=== PATIENT | female | born 1960 ===

== ENCOUNTER → 2017-10-18 | Outpatient (CLI) | payer BC ==
[2014-11-08 12:04] VITALS: BMI 27.3
[~2017-10-18] MED LIST: ACET-1966 PO; AMOX-559 PO; APRE80CA PO; CALC1TAB24 PO; CHOL200074 PO; CYAN250T15 PO; DEXA6TAB5 PO; ENOX40DI8 SQ; GABA-547 PO; IBUP-56 PO; LOPE1TAB55 PO; LORA5TAB16 PO; MULT1TAB64 PO; OXYC5TAB38 PO; PROC10TA4 PO; SULF-198 PO
[2017-10-18 13:11] VITALS: BP 114/68
== END ==
LOC: SPU 13:09
PROVIDERS: ATTEND Obstetrics & Gynecology
DX: C56.9 Malignant neoplasm of unspecified ovary (principal)